=== PATIENT | male | born 1935 | race Caucasian/White ===

== ENCOUNTER 2017-12-13 10:12 | Emergency (ER) | payer OTHER ==
[2017-12-13] MEDS ORDERED: ONDANSETRON 4 MG/2 ML VIAL IVP ONE (10:19)
--- NOTE | 2017-12-13 10:25 | EDPHY ---
H & P HPI/ROS: CHIEF COMPLAINT: Weakness, vomiting. HISTORY OF PRESENT ILLNESS: This patient is an 82 year old male with history of hypertension and prostate cancer arriving via EMS complaining of dizziness with associated vomiting and weakness. This morning while sitting in the kitchen, he had a sudden onset of "unbelievable dizziness". He states the room was spinning around and he had nausea and vomiting. These symptoms gradually resolved after he sat still, and had stopped shortly after EMS crews arrived on scene. He had a similar episode about seven years ago which he states may have been due to a stroke. Evaluation at that time is unknown. He denies tinnitus or otalgia. No headache, numbness, focal weakness (he felt diffusely weak at the time of the above episode). He denies chest pain, shortness of breath, dysuria, diarrhea, abdominal pain. He denies any recent cold symptoms or other illness. He denies history of heart attack. REVIEW OF SYSTEMS: A ten point review of systems was performed and is negative with the exception of the items mentioned in the HPI. Past medical history: Prostate cancer (Avodart). Hypertension. Past surgical history: Left tympanoplasty. Duodenal biopsy. Family history: Noncontributory. Social history: Family at bedside. 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 PCP Dr. Castellanos. Urologist Dr. Layton. Nonsmoker. Occasional alcohol use. No illicit drug use. General Appearance: Alert. Vital signs reviewed. BP 121/83. Moving about easily in the bed, turning head side to side. Eyes: Pupils equal and round, no conjunctival injection, no discharge. Anicteric. No nystagmus. ENT, Mouth: Mucous membranes are dry, no oropharyngeal erythema or edema. Scarring on left TM. Right TM normal. Neck: No lymphadenopathy, supple. Respiratory: Lungs are clear to auscultation; no wheezes, rales, or rhonchi. Cardiovascular: Regular rate and rhythm; no murmur, rub, or gallop. Gastrointestinal: Abdomen is soft and nontender, no masses or organomegaly, bowel sounds normal. Skin: Warm and dry, no rashes on exposed skin, normal color. Back: Nontender to palpation over the thoracolumbar spine. No CVAT. Extremities: No lower extremity edema, no calf tenderness or swelling. Neurological: Alert and oriented. Moving all four extremities easily and equally. Cranial nerves II through XII are examined and are intact (visual acuity not tested). Strength is 5 over 5 bilaterally with testing of all major motor groups. Sensation is intact to light touch over all 4 extremities. Deep tendon reflexes are 2+ in the biceps and knees bilaterally. Ncyyci-uz-[id number] is performed accurately. Psychiatric: Normal affect. Constitutional: Initial Vital Signs Temperature (C) 36.4 C 12/13/17 10:23 Heart Rate 72 12/13/17 10:23 Respiratory Rate 18 12/13/17 10:23 Blood Pressure 121/83 H 12/13/17 10:23 O2 Sat (%) 91 L 12/13/17 10:23 O2 Delivery Mode Room Air O2 (L/minute) 2 Allergies/Adverse Reactions: No Known Allergies Allergy (Unverified 12/13/17 10:18) Home Medications: Medication Instructions Recorded Amlodipine Besylate 12/13/17 Aspirin 81mg (*) 12/13/17 Avodart 0.5 MG (*) 12/13/17 Meclizine HCl [Antivert] 25 mg PO Q8 PRN #10 tablet 12/13/17 Terazosin HCl 12/13/17 Medical Decision Making - Diagnostics Imaging: Discussed imaging studies w/ field service technician Radiologist ED Course/Re-evaluation: This 82 year old male presents following an episode of what sounds like vertigo , now largely resolved. Exam is unremarkable, he is neurologically intact. Plan for EKG, labs including CBC, chemistries, troponin. Plan for CT head to r/o acute processes. Administered 4mg IV Zofran for nausea relief. 10:45 Spoke with patient's daughter. Per her report patient has history of bipolar disorder, not on medications. She states he does not want to take medications due to possible side effects affecting his hearing. Additionally, she states that during the patient's episode of vertigo seven years ago, there was no evidence of stroke, and she believes his statement of this may be due to his bipolar disorder. He does not provide or report any of this information to me. He specifically denies any medical illness other than those stated in his PMH. I did not relay to him the information that his daughter provided. Laboratory studies unremarkable. Troponin negative. 11:[address] Pinon, radiologist. CT head negative for acute processes. Reassessed patient. Discussed imaging results. Plan to discharge home in good condition with prescription for meclizine. He remains without dizziness, nausea. Follow up and return precautions discussed. He and his family are comfortable with this plan. Differential Diagnosis: I considered ddx of vertigo including but not limited to central causes such as cerebellar hemorrhage/infarction, verebrobasilar insufficiency, trauma, seizure , tumor. I also considered peripheral causes of vertigo (which I believe this patient has) such as otoliths, labyrinthitis, ototoxic drugs, Meniere disease, vestibular neuronitis, acoustic neuroma, trauma, infection. - Data Points Laboratory Results: Laboratory Results 12/13/17 10:19 12/13/17 10:19 Medications Given: Discontinued Medications Ondansetron HCl (Zofran) 4 mg IVP EDNOW ONE Stop: 12/13/17 10:20 Last Admin: 12/13/17 10:22 Dose: 4 mg Departure - Departure Disposition: Home, Routine, Self-Care Clinical Impression: Vertigo Condition: Good Instructions: Vertigo (ED) Additional Instructions: 1. Follow up with your primary care provider for further evaluation. You may also follow up with an ear, nose, and throat specialist for further evaluation of your vertigo. 2. You may try meclizine as prescribed (also available over the counter) for symptom relief. 3. Return to the emergency department for severe headache, uncontrollable vomiting, fainting, confusion, fever, or other worsening of condition. Referrals: Yarelis Castellanos MD [Primary Care Provider] - As per Instructions Sharon Latham PA [Physician Trimmer Climber] - As per Instructions Prescriptions: Meclizine HCl [Antivert] 25 mg PO Q8 PRN #10 tablet PRN Reason: vertigo Report Scribed for: Bonita Denson Report Scribed by: Paulette Mullins Date of Report: 12/13/17 Time of Report: 12:16 Physician Review and Approval Statement: 12/13/17 10:25 Portions of this note were transcribed by the medical records assistant. I, Dr. Bonita Denson, personally performed the history, physical exam, and medical decision- making; and confirmed the accuracy of the information in the transcribed note.
--- NOTE | 2017-12-13 10:27 | CPEKG ---
Heart Rate: 80 RR Interval: 750 P-R Interval: 188 QRSD Interval: 158 QT Interval: 416 QTC Interval: 480 P Toivola: 41 QRS To[place]ola: -75 T Wave To[place]: 7 EKG Severity - ABNORMAL ECG - EKG Impression: SINUS RHYTHM EKG Impression: RIGHT BUNDLE BRANCH BLOCK EKG Impression: PROBABLE ANTEROSEPTAL INFARCT, OLD Electronically Signed By: Bonita Denson 13-Dec-2017 16:26:34
[2017-12-13 11:16] LABS: PLATELET COUNT 293 10^3/uL (150-400)
[2017-12-13 12:35] VITALS: BP 135/80; TEMP 98.2
[2017-12-13 13:07] VITALS: PULSE 82; RESP 18; O2SAT 92
== END 2017-12-13 13:08 | disposition home or self-care (01) ==
LOC: EDUNIT#
DX: R42 Dizziness and giddiness (principal); I10 Essential (primary) hypertension; Z79.82 Long term (current) use of aspirin; Z85.46 Personal history of malignant neoplasm of prostate
CPT/HCPCS: 70450; 93005; 96374; 99285; J2405

== ENCOUNTER 2018-08-31 00:32 | Emergency (ER) | payer OTHER ==
[2018-08-31] MEDS ORDERED: DEXAMETHASONE 4 MG TAB PO ONE (00:52)
[2018-08-31 02:19] VITALS: BP 148/84
--- NOTE | 2018-08-31 02:20 | EDPHY ---
H & P Stated Complaint: throat pain, "feels swollen", poss reaction to azithro Time Seen by Provider: 08/31/18 00:44 HPI/ROS: Chief Complaint: Throat pain HPI: 83-year-old male coming in with worsening throat pain this morning. Patient was recently seen by his primary care physician for upper respiratory symptoms started on a 3 day course of azithromycin. He has had a mildly productive cough. This morning he woke up with the sensation of a blockage in his throat with a large amount of phlegm. This occurred about an hour after he took his azithromycin. No fevers or chills. He does have a scratchy throat and says his throat is quite sore. No difficulty swallowing. No difficulty breathing. No skin rash. No swelling. ROS: 10 systems were reviewed and were negative except those elements noted in the HPI. Social History: No smoking, no alcohol, no recreational drug use Family History: non-contributory Physical Exam: Gen: Awake, Alert, No Distress HEENT: Nose: no rhinorrhea Eyes: PERRLA, EOMI Mouth: Moist mucosa mild oral pharyngeal erythema without edema or exudate , uvula is midline Neck: Supple, no JVD Chest: nontender, lungs clear to auscultation Heart: S1, S2 normal, no murmur Abd: Soft, non-tender, no guarding Back: no CVA tenderness, no midline tenderness Ext: no edema, non-tender Skin: no rash Neuro: CN II-XII intact, Sensation grossly intact, Strength 5/5 in bilateral upper and lower extremities - Personal History Current Tetanus/Diphtheria Vaccine: Yes - Medical/Surgical History Hx Asthma: No Hx Chronic Respiratory Disease: No Hx Diabetes: No Hx Cardiac Disease: No Hx Renal Disease: No Hx Cirrhosis: No Hx Alcoholism: No Hx HIV/AIDS: No Hx Splenectomy or Spleen Trauma: No Other PMH: htn/prostate cancer/sciatica - Social History Smoking Status: Never smoked Constitutional: Initial Vital Signs Temperature (C) 36.6 C 08/31/18 00:34 Heart Rate 95 08/31/18 00:34 Respiratory Rate 16 08/31/18 00:34 Blood Pressure 184/101 H 08/31/18 00:34 O2 Sat (%) 90 L 08/31/18 00:34 O2 Delivery Mode Room Air Allergies/Adverse Reactions: No Known Allergies Allergy (Unverified 12/13/17 10:18) Home Medications: Medication Instructions Recorded Amlodipine Besylate 12/13/17 Aspirin 81mg (*) 12/13/17 Avodart 0.5 MG (*) 12/13/17 Meclizine HCl [Antivert] 25 mg PO Q8 PRN #10 tablet 12/13/17 Terazosin HCl 12/13/17 Medical Decision Making ED Course/Re-evaluation: Rapid strep is negative. Patient is feeling significantly improved after oral dexamethasone. Symptoms consistent with a postnasal drip from his likely viral upper respiratory process. Cannot entirely rule out a reaction to the azithromycin and I have cautioned him to not take the 3rd dose. He will follow up with his physician. I do not see any evidence of acute angioedema or airway obstruction at this time. - Data Points Laboratory Results: 08/31/18 08/31/18 Unknown 00:45 Group A Strep Screen NEGATIVE (NEGATIVE) Group A Strep DNA Pending Medications Given: Discontinued Medications Dexamethasone (Decadron) 8 mg PO EDNOW ONE Stop: 08/31/18 00:53 Last Admin: 08/31/18 00:58 Dose: 8 mg Departure - Departure Disposition: Home, Routine, Self-Care Clinical Impression: URI (upper respiratory infection) Condition: Good Instructions: Upper Respiratory Infection (ED) Additional Instructions: Follow up with primary care physician in 2-3 days for re-evaluation. Return to the emergency department for increasing throat pain, difficulty breathing, uncontrolled cough, fevers, chills, or any other concerns. Referrals: Yarelis Castellanos MD [Primary Care Provider] - As per Instructions
== END 2018-08-31 02:24 | disposition home or self-care (01) ==
DX: J06.9 Acute upper respiratory infection, unspecified (principal)